=== PATIENT | male | born 1955 | race Caucasian/White ===

== ENCOUNTER → 2023-09-08 07:51 | Outpatient (REF) | payer MEDICARE, SELFPAY | LOC: DHCBC/DCA 07:51 | PROVIDERS: ATTENDING PHYSICIAN Internal Medicine Cardiovascular Disease; FAMILY PHYSICIAN Internal Medicine | DX: I35.0 Nonrheumatic aortic (valve) stenosis (principal); R06.09 Other forms of dyspnea | CPT/HCPCS: 78452; 93017; A9500; J2785 ==

== ENCOUNTER → 2023-09-09 14:40 | Outpatient (REF) | payer MEDICARE, SELFPAY | LOC: RCS 14:40 | PROVIDERS: ATTENDING PHYSICIAN Internal Medicine Cardiovascular Disease; FAMILY PHYSICIAN Internal Medicine | DX: I35.0 Nonrheumatic aortic (valve) stenosis (principal); R06.09 Other forms of dyspnea | CPT/HCPCS: 93306 ==

== ENCOUNTER → 2023-10-25 07:48 | Outpatient (REF) | payer MEDICARE, SELFPAY | LOC: RAD 07:48 | PROVIDERS: ATTENDING PHYSICIAN Surgery Vascular Surgery; FAMILY PHYSICIAN Internal Medicine | DX: R09.89 Other specified symptoms and signs involving the circulatory and respiratory systems (principal); I70.1 Atherosclerosis of renal artery | CPT/HCPCS: 93880; 93975 ==

== ENCOUNTER → 2023-12-23 06:27 | Day surgery (SDC) | payer MEDICARE, SELFPAY | LOC: GI 06:27 | PROVIDERS: ATTENDING PHYSICIAN Internal Medicine Gastroenterology; FAMILY PHYSICIAN Internal Medicine | DX: Z12.11 Encounter for screening for malignant neoplasm of colon (principal); D12.2 Benign neoplasm of ascending colon; K57.30 Diverticulosis of large intestine without perforation or abscess without bleeding; K64.8 Other hemorrhoids; K22.89 Other specified disease of esophagus; K31.89 Other diseases of stomach and duodenum; R12 Heartburn; Z13.810 Encounter for screening for upper gastrointestinal disorder | CPT/HCPCS: 45380; 43239; 88305; 88342 ==

== ENCOUNTER → 2024-09-25 07:16 | Outpatient (REF) | payer MEDICARE, SELFPAY | LOC: RCS 07:16 | PROVIDERS: ATTENDING PHYSICIAN Internal Medicine Cardiovascular Disease; FAMILY PHYSICIAN Internal Medicine | DX: I35.0 Nonrheumatic aortic (valve) stenosis (principal) | CPT/HCPCS: 93306 ==